=== PATIENT | female | born 1975 | race Caucasian/White ===

== ENCOUNTER 2019-03-18 17:49 | Emergency (ER) | payer OTHER ==
[~2019-03-18] VITALS: Ht 161.3 cm; Wt 65.8 kg
[~2019-03-18 17:49] MED LIST: AZIT250T3 PO; IBUP-2213 PO; NAPR-54 PO
[2019-03-18 17:55] VITALS: BP 123/86
--- NOTE | 2019-03-18 18:12 | NUR ---
43 YO F BIB [facility] WITH C/O ABD PAIN X EARLIER TODAY. DENIES VAG BLEEDING, 18 WEEKS . -N/V/D. AFEBRILE. PMH: NONE
--- NOTE | 2019-03-18 18:25 | NUR ---
RECIEVED REPORT FROM DAY SHIFT NURSE. PATIENT SITTING IN BED, US JUST COMPLETED.
[2019-03-18 19:01] LABS: BASOPHILS % (AUTO) 0.2 % (0.0-2.0); EOSINOPHILS # (AUTO) 0.1 K/uL (0-0.4); EOSINOPHILS % (AUTO) 1.1 % (0.0-4.0); HEMATOCRIT 35.1 % (36-48); HEMOGLOBIN 11.8 g/dL (12.0-16.0); LYMPHOCYTES # (AUTO) 1.8 K/uL (2.5-16.5); LYMPHOCYTES % (AUTO) 21.5 % (20.5-51.1); MEAN CORPUSCULAR HEMOGLOBIN 30 pg (27-31); MEAN CORPUSCULAR HGB CONC 34 g/dL (33-37); MEAN CORPUSCULAR VOLUME 89.5 fL (80-94); MONOCYTES # (AUTO) 0.8 K/uL (0.8-1.0); MONOCYTES % (AUTO) 9.6 % (1.7-9.3); NEUTROPHILS # (AUTO) 5.7 K/uL (1.8-7.7); NEUTROPHILS % (AUTO) 67.6 % (42.2-75.2); PLATELET COUNT (AUTO) 254 K/uL (140-450); RED BLOOD CELL COUNT(AUTO) 3.93 MIL/uL (4.20-5.40); RED CELL DISTRIBUTION WIDTH 15.4 % (11.6-13.7); WHITE BLOOD COUNT (AUTO) 8.5 K/uL (4.8-10.8)
[2019-03-18 19:45] VITALS: BP 123/86
--- NOTE | 2019-03-18 19:45 | NUR ---
Patient discharged with v/s stable. Written and verbal after care instructions given and explained. Patient verbalized understanding. Ambulatory with steady gait. All questions addressed prior to discharge. Advised to follow up with OBGYN.
[2019-03-18 21:37] LABS: APPEARANCE,URINE CLEAR (CLEAR); BILIRUBIN,URINE NEGATIVE (NEGATIVE); BLOOD, URINE NEGATIVE (NEGATIVE); COLOR,URINE YELLOW (YELLOW); LEUKOCYTE ESTERASE ,URINE NEGATIVE (NEGATIVE); NITRITE, URINE NEGATIVE (NEGATIVE); UGLUCOSE NEGATIVE (NEGATIVE)
== END 2019-03-18 19:45 | disposition home or self-care (01) ==
LOC: MED 17:49
DX: O20.0 Threatened abortion (principal); Z3A.19 19 weeks gestation of pregnancy; Z79.1 Long term (current) use of non-steroidal anti-inflammatories (NSAID); Z79.2 Long term (current) use of antibiotics
CPT/HCPCS: 36415; 76815; 81003; 84702; 85025; 86900; 86901; 99284; Q0092

== ENCOUNTER 2019-06-20 10:18 | Observation (INO) | payer OTHER ==
[~2019-06-20] VITALS: Ht 160 cm; Wt 68.5 kg
[2019-06-20 10:23] VITALS: BP 135/87
--- NOTE | 2019-06-20 10:35 | NUR ---
PATIENT AMBULATED TO BED 7 AT THIS TIME.
--- NOTE | 2019-06-20 10:43 | NUR ---
DR. FRANKLIN AT BEDSIDE EVALUATING PATIENT.
--- NOTE | 2019-06-20 11:25 | NUR ---
PT PRESENTS TO ED WITH C/O PAIN AND NUMBNESS TO RIGHT UPPER EXTREMITY X 2 MONTHS. DENIES ANY INJURY/TRAUMA. PT STATES SHE IS 7 MONTHS AND C/O LOWER ABD PAIN AND SPOTTING X THIS MORNING. NO ACTIVE BLEEDING. CONNECTED TO [employer]; VSS.
[2019-06-20 11:35] LABS: APPEARANCE,URINE CLEAR (CLEAR); BILIRUBIN,URINE NEGATIVE (NEGATIVE); BLOOD, URINE NEGATIVE (NEGATIVE); COLOR,URINE YELLOW (YELLOW); LEUKOCYTE ESTERASE ,URINE NEGATIVE (NEGATIVE); NITRITE, URINE NEGATIVE (NEGATIVE); UGLUCOSE NEGATIVE (NEGATIVE)
[2019-06-20 12:25] VITALS: BP 127/77
[2019-06-20] MEDS ORDERED: PREN-380 PO (13:47)
[2019-06-20] MEDS ORDERED: FERR-252 PO (13:47)
[2019-06-20] MEDS ORDERED: ACETAMINOPHEN 325 MG TAB PO ONE (13:50)
[2019-06-20] MEDS ORDERED: ACETAMINOPHEN 325 MG TAB PO SCH (13:54)
[2019-06-20] MEDS ORDERED: ACETAMINOPHEN 325 MG TAB ONE (14:09)
== END 2019-06-20 14:06 | disposition home or self-care (01) ==
LOC: MED 10:18 → MLD 12:31 → MED 12:31 → MLD 12:31
PROVIDERS: ADMIT Obstetrics & Gynecology; ATTEND Obstetrics & Gynecology
DX: O99.89 Other specified diseases and conditions complicating pregnancy, childbirth and the puerperium (principal); M25.521 Pain in right elbow; O26.893 Other specified pregnancy related conditions, third trimester; R10.30 Lower abdominal pain, unspecified; Z3A.32 32 weeks gestation of pregnancy
CPT/HCPCS: 81003; 99283; G0378

== ENCOUNTER 2020-05-25 18:34 | Emergency (ER) | payer OTHER, SELFPAY ==
[~2020-05-25] VITALS: Ht 162.6 cm; Wt 61.7 kg
[~2020-05-25 18:34] MED LIST changes: -AZIT250T3 PO; +FERR-252 PO; -IBUP-2213 PO; -NAPR-54 PO; +PREN-380 PO
[2020-05-25 18:38] VITALS: BP 130/89
--- NOTE | 2020-05-25 18:40 | NUR ---
COVID SWAB DONE.
--- NOTE | 2020-05-25 18:41 | NUR ---
C/O HEADACHE, CHILL, BODY ACHE X 8 DAYS. TEMP 101.2, P112, R20, BP 130/89 AT THIS TIME. MED HX: DENIES
[2020-05-25] MEDS ORDERED: ACETAMINOPHEN EXTRA STRENGTH 500 MG TAB PO ONE (18:45)
[2020-05-25] MEDS ORDERED: ACETAMINOPHEN EXTRA STRENGTH 500 MG TAB ONE (18:46)
[2020-05-25] MEDS ORDERED: KETOROLAC 30 MG/ML VIAL IM ONE (19:15)
[2020-05-25 19:45] VITALS: BP 116/83
--- NOTE | 2020-05-28 18:09 | NUR ---
+covid result from lab, copy will go to house sup and infection control
== END 2020-05-25 19:45 | disposition home or self-care (01) ==
LOC: EEVIPCON 18:34 → MED 18:34
DX: B34.9 Viral infection, unspecified (principal); Z20.828 Contact with and (suspected) exposure to other viral communicable diseases
CPT/HCPCS: 96372; 99283; J1885; U0003

== ENCOUNTER 2020-06-21 11:45 | Emergency (ER) | payer OTHER, SELFPAY ==
[~2020-06-21] VITALS: Ht 162.6 cm; Wt 2.4 kg
[2020-06-21 11:56] VITALS: BP 120/83
--- NOTE | 2020-06-21 12:02 | NUR ---
PT C/O FLU LIKE S/S TEST + FOR COIVD 3 WEEKS AGO NOW HAS BODY ACHES PAIN 3/10. PT DENIES N/V/D; SKIN IS INTACT, PINK/WARM/DRY; AAOX4, PERRL, WITH EVEN AND STEADY GAIT; LUNGS CLEAR BL, BREATHING UNLABORED; HR EVEN AND REGULAR, BL PERIPHERAL PULSES PRESENT; BS ACTIVE X4, NO TENDERNESS TO PALPATION. PT DENIES ANY FEVER OR COUGH AT THIS TIME; PT STATES 3/10 PAIN AT THIS TIME; VSS; PATIENT POSITIONED FOR COMFORT; HOB ELEVATED; BEDRAILS UP X2; BED DOWN.
--- NOTE | 2020-06-21 12:35 | NUR ---
COVID SWAB DONE.
--- NOTE | 2020-06-21 12:38 | NUR ---
Patient discharged with v/s stable. Written and verbal after care instructions given and explained. Patient alert, oriented and verbalized understanding of instructions. Ambulatory with steady gait. All questions addressed prior to discharge. ID band removed. Patient advised to follow up with PMD. Rx of IBUPROFEN & PROMETHAZINE given. Patient educated on indication of medication including possible reaction and side effects. Opportunity to ask questions provided and answered.
[2020-06-21 12:40] VITALS: BP 120/83
== END 2020-06-21 12:38 | disposition home or self-care (01) ==
LOC: MED 11:45 → EDUNIT# 11:45 → MED 12:38
DX: R05 Cough (principal); M79.10 Myalgia, unspecified site; Z20.828 Contact with and (suspected) exposure to other viral communicable diseases
CPT/HCPCS: 99283; U0003

== ENCOUNTER 2021-05-31 11:16 | Emergency (ER) | payer OTHER, SELFPAY ==
[~2021-05-31] VITALS: Ht 162.6 cm; Wt 65.8 kg
[2021-05-31 11:26] VITALS: BP 133/80
--- NOTE | 2021-05-31 11:36 | NUR ---
C/O RIGHT ELBOW PAIN RADIATING TO RIGHT NECK & RIGHT UPPER BACK & RIGHT FOREARM X 1 MONTH. DENIES TRAUMA/INJURY. PMH: DENIES
--- NOTE | 2021-05-31 12:06 | NUR ---
KRISTEL Wagner is evaluating the patient at bedside.
[2021-05-31] MEDS ORDERED: KETOROLAC 30 MG/ML VIAL IM ONE (12:10)
--- NOTE | 2021-05-31 12:19 | NUR ---
RAD AT BEDSIDE
[2021-05-31] MEDS ORDERED: NAPR-54 PO (12:33)
--- NOTE | 2021-05-31 12:45 | NUR ---
PT REFUSED ARM SLING THEREFOR APPLIED TAD WRAP TO RIGHT ELBOW WITHOUT ANY ISSUES
== END 2021-05-31 13:12 | disposition home or self-care (01) ==
LOC: MED 11:16
DX: M77.11 Lateral epicondylitis, right elbow (principal); M54.10 Radiculopathy, site unspecified; Z79.899 Other long term (current) drug therapy
CPT/HCPCS: 73070; 96372; 99283; J1885

== ENCOUNTER 2021-06-02 09:19 | Emergency (ER) | payer OTHER ==
[~2021-06-02] VITALS: Ht 162.6 cm; Wt 65.8 kg
[~2021-06-02 09:19] MED LIST changes: +NAPR-54 PO
[2021-06-02 09:24] VITALS: BP 143/50
[2021-06-02] MEDS ORDERED: KETOROLAC 30 MG/ML VIAL IM ONE (09:40)
[2021-06-02] MEDS ORDERED: [UNRECOGNIZED DRUG - CODE] TP (09:46)
[2021-06-02] MEDS ORDERED: LIDO5TDM59 TP (09:48)
[2021-06-02] MEDS ORDERED: KETOROLAC 60 MG/2 ML VIAL IM ONE (09:53)
[2021-06-02 10:05] VITALS: BP 143/50
== END 2021-06-02 10:06 | disposition home or self-care (01) ==
LOC: MED 09:19
DX: M54.6 Pain in thoracic spine (principal); Z79.899 Other long term (current) drug therapy
CPT/HCPCS: 96372; 99283; J1885